=== PATIENT | female | born 1955 | race Two or more races ===

== ENCOUNTER 2017-01-14 15:56 | Inpatient (IN) | payer BC ==
[~2017-01-14] VITALS: Ht 309.9 cm; Wt 63.5 kg
[2017-01-14 17:00] VITALS: BP 137/76; PULSE 65; RESP 20
[2017-01-14] MEDS ORDERED: DOCUSATE SODIUM 100 MG CAP PO PRN ×2 (19:00)
[2017-01-14] MEDS ORDERED: ACETAMINOPHEN 325 MG TAB PO PRN (19:00)
[2017-01-14] MEDS ORDERED: SENNA/DOCUSATE NA (8.6MG/50MG) TAB PO PRN (19:00)
[2017-01-14] MEDS ORDERED: SENNA TAB PO PRN (19:00)
[2017-01-14] MEDS ORDERED: HYDROCODONE/APAP (5/325) TAB PO PRN ×2 (19:00)
[2017-01-14] MEDS ORDERED: DIAZEPAM 5 MG TAB PO PRN (19:00)
[2017-01-14] MEDS ORDERED: MAGNESIUM HYDROXIDE 30ML CUP PO PRN (19:00)
[2017-01-14] MEDS ORDERED: BISACODYL 10 MG SUPP PR PRN (19:00)
[2017-01-14 20:15] VITALS: Ht 309.9 cm; Wt 63.5 kg
--- NOTE | 2017-01-14 21:03 | HP ---
DATE OF ADMISSION: 01/14/2017 REASON FOR ADMISSION: Status post right L5-S1, S1-S2 hemilaminectomy and decompression of the right foraminotomies. This patient with possible lumbar metastatic disease status post decompression. HISTORY OF PRESENT ILLNESS: The patient is a 61-year-old female with history of breast cancer diagn osed more than 5 years ago, status post lumpectomy and treatment who in the past 3 months has been n oticing increased right lower extremity pain. The pain has become more severe in the past 2 weeks a nd she was finally admitted to [facility]. She underwent multiple diagnostic imaging includin g MRI which showed unfortunately diffuse bony metastases is suggested throughout the visualized spin e with majority of the lesions concentrated on the right side of the sacrum and pathologic fracture in the right S1 segment is suspected. See report. Patient was then evaluated by the surgical team, and the patient underwent the above procedure. The patient tolerated the procedure well and physic al therapy was initiated. Final pathology report is still not available. The patient states that t tom her pain was slightly more severe than usual, but she has been more active. Otherwise, she den ies headaches, blurry vision, chest pain, shortness of breath, weakness or numbness. The patient is admitted for further care. PAST MEDICAL HISTORY: 1. Breast cancer. 2. Likely metastatic cancer to the spine. 3. Hypertension. ALLERGIES: NO KNOWN DRUG ALLERGIES. SOCIAL HISTORY: Tobacco briefly in her teens. Alcohol, IV drug abuse none. ONCOLOGIST: Dr. Hawley. PRIMARY CARE: Dr. Cody. SURGICAL HISTORY: Lumpectomy, right wrist surgery. MEDICATIONS: The patient's current medications include: 1. ____ 3.125 twice a day. 2. Tylenol p.r.n. 3. Diazepam p.r.n. 4. [place] p.r.n. 5. Normodyne 200 mg q. 4 p.r.n. for systolic greater than 165. Before that she took calcium and vi tamins. PHYSICAL EXAMINATION: VITAL SIGNS: Blood pressure is 137/76, pulse 65, respirations 20, temperature 98.8, saturation 95% on room air. GENERAL: The patient is in no acute distress, very pleasant. Patient is pale. HEENT: No JVD. No lymphadenopathy. CARDIOVASCULAR: S1, S2, regular rate. LUNGS: Clear. ABDOMEN: Soft, nontender. EXTREMITIES: No clubbing, cyanosis, or edema. She has bandage in the mid spine and appears to be c lean. LABORATORY DATA: Recent labs on 01/12/2017 shows a white count of 9.8, hemoglobin 13.6, hematocrit 40. Sodium is 140, potassium is 4.3, chloride 101, bicarbonate 28, BUN is 22, creatinine 0.78, gluc ose of 119. ASSESSMENT AND PLAN: This is a 61-year-old female with history of breast cancer who presents with i ncreasing right lower extremity pain, basically back pain with radiculopathy was found to have most likely metastatic disease to the spine, status post decompression surgery, 1. Post lumbar spine surgery. The patient here for physical therapy, occupational therapy, pain co ntrol. Stool softeners will be given. 2. Goal is for her to be strong enough to go home as the patient resides alone. 3. Possible metastatic disease to the spine. Follow up pathology report and then follow up with [facility] oncologist, Dr. Hawley. 3. The patient will be placed on deep vein thrombosis prophylaxis and gastrointestinal prophylaxis. 4. Angiolytic p.r.n. for anxiety. 4. The patient will be placed on Protonix for GI prophylaxis. Monitor the patient's symptoms close ly. Continue wound care to the back and we will follow closely. Dictated By: VITALY RICO/NOEMY Conf#: [id number] DID#: [id number] CC: AVERY MARTINEZ MD;*EndCC*
[2017-01-14 21:18] VITALS: BP 138/82; PULSE 71; RESP 16
[2017-01-14] MEDS: DOCUSATE SODIUM 100 MG CAP PO SCH (21:19)
[2017-01-15] MEDS ORDERED: ACETAMINOPHEN 325 MG TAB PO PRN
[2017-01-15 04:00] VITALS: BP 154/85; PULSE 76; RESP 17
[2017-01-15 04:29] LABS: ADD UMIC NO; UR ASCORBIC ACID NEGATIVE (NEGATIVE); UR BILIRUBIN (Dip) NEGATIVE (NEGATIVE); UR BLOOD (Dip) NEGATIVE (NEGATIVE); UR CLARITY CLEAR (CLEAR); UR COLOR YELLOW (YELLOW); UR GLUCOSE (Dip) NEGATIVE (NEGATIVE); UR KETONES (Dip) NEGATIVE (NEGATIVE); UR LEUKOCYTE ESTERASE (Dip) NEGATIVE Leu/ul (NEGATIVE); UR NITRITE (Dip) NEGATIVE (NEGATIVE); UR SPECIFIC GRAVITY (Dip) 1.013 (1.003-1.030); UR TOTAL PROTEIN (Dip) NEGATIVE (NEGATIVE); UR UROBILINOGEN (Dip) NEGATIVE (NEGATIVE)
[2017-01-15 06:30] LABS: BASOPHIL # 0.1 10^3/ul (0.0-0.1); BASOPHILS % 0.8 % (0.0-2.0); EOSINOPHILS # 0.4 10^3/ul (0.0-0.5); EOSINOPHILS % 4.8 % (0.0-7.0); HEMATOCRIT 41.8 % (37.0-47.0); LYMPHOCYTES # 2.7 10^3/ul (0.8-2.9); LYMPHOCYTES % 31.5 % (15.0-51.0); MEAN CORPUSCULAR HEMOGLOBIN 29.8 pg (29.0-33.0); MEAN CORPUSCULAR HGB CONC 33.5 g/dl (32.0-37.0); MEAN CORPUSCULAR VOLUME 88.9 fl (82.0-101.0); MEAN PLATELET VOLUME 10.1 fl (7.4-10.4); MONOCYTE # 0.7 10^3/ul (0.3-0.9); MONOCYTES % 8.2 % (0.0-11.0); NEUTROPHIL # 4.7 10^3/ul (1.6-7.5); NEUTROPHILS % 54.3 % (39.0-77.0); PLATELET COUNT 401 10^3/UL (140-415); RED CELL DISTRIBUTION WIDTH 12.2 % (11.5-14.5); WHITE BLOOD COUNT 8.6 10^3/ul (4.8-10.8)
[2017-01-15 07:04] LABS: ALBUMIN 3.7 g/dl (3.3-4.9); ALBUMIN/GLOBULIN RATIO 1.02; BILIRUBIN,INDIRECT 0.4 mg/dl (0-1.1); BILIRUBIN,TOTAL 0.4 mg/dl (0.2-1.3); CALCIUM 9.7 mg/dl (8.4-10.2); CREATININE 1.07 mg/dl (0.44-1.00); POTASSIUM 4.7 mmol/L (3.5-5.1); TOTAL PROTEIN 7.3 g/dl (6.1-8.1)
[2017-01-15 08:00] VITALS: BP 168/85; PULSE 70; RESP 21
[2017-01-15] MEDS: ENOXAPARIN 40 MG/0.4 ML SYG SC SCH (09:27)
[2017-01-15] MEDS: DOCUSATE SODIUM 100 MG CAP PO SCH ×2 (09:28→20:39)
[2017-01-15] MEDS: LABETALOL 200 MG TAB PO PRN (09:28)
[2017-01-15] MEDS ORDERED: LACTULOSE 30ML CUP PO PRN (10:30)
--- NOTE | 2017-01-15 12:39 | CONS ---
DATE OF ADMISSION: 01/14/2017 DATE OF CONSULTATION: 01/15/2017 REHABILITATION POST ADMISSION PHYSICIAN EVALUATION REHABILITATION IMPAIRMENT CATEGORY: Metastatic breast carcinoma with bony mets to the lumbosacral s pine with resultant stenosis and radiculopathy, and pathologic sacral fracture requiring decompressi ve laminectomy. ACTIVE COMORBIDITIES: 1. Acute pain syndrome. 2. Constipation. 3. History of breast carcinoma with metastasis, also to bilateral iliac, right worse than left. 4. Impairments in self-care and mobility. HISTORY OF PRESENT ILLNESS: The patient is a very pleasant 61-year-old female with a history of br [place] who had noted worsening severe right lower extremity pain with numbness and significant impa irments in self-care and mobility. Workup included an MRI of the spine which showed diffuse bony me tastasis of the thoracolumbar sacral spine with notable lumbosacral stenosis and radiculopathy in ad dition to pathologic sacral fracture, and bilateral iliac bone metastases. The patient underwent d ecompressive right hemilaminotomy with foraminotomies. Her postoperative course has been notable fo r pain, constipation, and significant impairments in self-care and mobility as compared to baseline. The patient has been cleared to transfer to the rehabilitation unit for comprehensive interdiscipl inary rehab care. FUNCTIONAL HISTORY: Prior to recent events, she was independent in self-care tasks and mobility. C urrently, patient requires minimal assist for self-care and mobility tasks. I have reviewed the preadmission screen and the patient's current functional status is consistent wi th the preadmission screen. SOCIAL HISTORY: The patient lives at home alone. She does live in a second floor apartment and has multiple stair steps to entryway. PAST MEDICAL HISTORY: Breast carcinoma. CURRENT MEDICATIONS: 1. Carvedilol 3.125 mg p.o. b.i.d. 2. Diazepam p.r.n. 3. Colace 100 mg b.i.d. p.r.n. 4. [place] p.r.n. 5. Lovenox 40 mg subQ every day. ALLERGIES: THE PATIENT WITH NO KNOWN DRUG ALLERGIES. PHYSICAL EXAMINATION: VITAL SIGNS: The patient is currently afebrile with stable vital signs. HEENT: Extraocular motions intact. Oropharynx clear. NECK: Supple. LUNGS: Clear anteriorly. CARDIAC: S1, S2. ABDOMEN: Soft, nontender, positive bowel sounds. NEUROLOGIC: She is awake and alert and oriented x3. She can follow simple 1-step commands. Crania l nerves are grossly intact. She has antigravity strength in bilateral upper extremity and lower ex tremity. She does have impaired dynamic balance. PLAN: The patient has been admitted for comprehensive interdisciplinary acute rehab and is anticipa jodie to tolerate 3 hours of daily therapy in divided doses for at least 5/7 days a week. The treatme nt plan will include: 1. Physical therapy to focus on bed mobility, transfers and household ambulation with the goal of h aving the patient reach a standby assist in addition to standby assist for stair mobility. 2. Occupational therapy to focus on hygiene, grooming, dressing, bathing, and toileting activities with the goal of having the patient reach standby assist level. 3. Rehabilitation nursing for carryover of therapeutic interventions, the goal of continent of dariel l and bladder, and the goal of pain adequately managed on oral medications. ESTIMATED LENGTH OF STAY: 7 days. DISPOSITION GOAL: Home. REHABILITATION BARRIER: Stairs at home. INTERVENTION FOR BARRIER: Stair training. I acknowledge that I performed a full physical examination on this patient within 24 hours of admiss ion to the rehabilitation unit and believe the patient is a good candidate for comprehensive interdi sciplinary rehab care and is anticipated to make reasonable goals in a reasonable period of time as outlined above. Dictated By: AVERY GALVIN/NTS Conf#: [id number] DID#: [id number]
[2017-01-15] MEDS: SENNA TAB PO SCH (20:39)
[2017-01-15 20:45] VITALS: BP 136/84; PULSE 75; RESP 19
--- NOTE | 2017-01-16 07:00 | PN ---
DATE: 01/15/2017 SUBJECTIVE: The patient seen. OBJECTIVE: GENERAL: The patient is in no acute distress. HEENT: Normocephalic, atraumatic. Pale. CARDIOVASCULAR: S1, S2, regular rate. LUNGS: Clear. ABDOMEN: Soft, nontender. EXTREMITIES: No clubbing, cyanosis, or edema. LABORATORY DATA: White count 8.6, hemoglobin 14, hematocrit 42, platelet count is 401 with normal d ifferential. Chemistry: Sodium 139, potassium 4.7, chloride , bicarbonate 29, BUN 24, creatin ine 1.07, glucose of 113. LFTs are all normal. Urinalysis is negative. MEDICATIONS: Include: 1. Senna 1 tab b.i.d. 2. Lactulose p.r.n. 3. Lovenox 40 mg subcutaneous daily. 4. Tylenol p.r.n. 5. Coreg 3.125 b.i.d. 6. Colace 100 b.i.d. 7. Valium 5 mg q.6h. p.r.n. 8. Colace p.r.n. 9. [place] p.r.n. 10. Labetalol p.r.n. 11. Milk of magnesia p.r.n. 12. Bisacodyl p.r.n. ASSESSMENT AND PLAN: This is a 61-year-old female with history of breast cancer, who presented with increasing right lower extremity pain, was found to have metastatic disease to the spine on radiogr aphic imaging status post decompression surgery. 1. Post-lumbar spine surgery. Continue physical therapy, occupational therapy, pain control, stool softeners. 2. Hypertension. Currently on Coreg; may add another medication such as amlodipine. 3. Possible metastatic disease to the spine. We will follow up with pathology report and will disc uss findings with Dr. Hawley the oncologist. 4. Continue deep vein thrombosis prophylaxis and gastrointestinal prophylaxis. 5. Continue gastrointestinal prophylaxis with Protonix. 6. Continue benzodiazepines p.r.n. for anxiety. Continue stool softeners. We will follow closely. Dictated By: VITALY RICO/NOEMY Conf#: [id number] DID#: [id number] CC: AVERY MARTINEZ MD;*EndCC*
[2017-01-16 08:00] VITALS: BP 168/95; PULSE 88; RESP 18
[2017-01-16 09:40] VITALS: BP 108/70; PULSE 78; RESP 18
[2017-01-16] MEDS: SENNA TAB PO SCH ×2 (09:47→20:58)
[2017-01-16] MEDS: DOCUSATE SODIUM 100 MG CAP PO SCH ×2 (09:47→20:58)
[2017-01-16] MEDS: LABETALOL 200 MG TAB PO PRN (09:48)
[2017-01-16] MEDS: ENOXAPARIN 40 MG/0.4 ML SYG SC SCH (10:06)
[2017-01-16] MEDS: GABAPENTIN 100 MG CAP PO SCH ×2 (12:18→20:57)
--- NOTE | 2017-01-16 12:35 | CONS ---
Date/Time of Note Date/Time of Note DATE: 01/16/17 TIME: 12:33 Consult Date/Type/Reason Admit Date/Time Jan 14, 2017 at 15:56 Initial Consult Date Subjective reports pain primarily when sitting Objective pulm-cta cga ambulation Vital Signs Date Time Temp Pulse Resp B/P Pulse Ox O2 Delivery O2 Flow Rate FiO2 01/15/17 20:45 98.3 75 19 136/84 95 Room Air Intake and Output 01/15/17 01/15/17 01/16/17 14:59 22:59 06:59 Intake Total 200 ml Balance 200 ml Results/Medications Result Diagram: 01/15/17 0558 01/15/17 0558 Medications Current Medications Carvedilol (Coreg) 3.125 mg BID PO Last administered on 01/16/17 09:48; Admin Dose 3.125 MG; Start 01/14/17 at 21:00 Diazepam (Valium) 5 mg Q6H PRN PO MUSCLE SPASMS; Start 01/14/17 at 19:00 Docusate Sodium (Colace) 100 mg BID PRN PO CONSTIPATION; Start 01/14/17 at 19: 00 Acetaminophen/ Hydrocodone Bitart ([place] (5/325)) 1 tab Q4H PRN PO PAIN 1-3/10 ; Start 01/14/17 at 19:00 Acetaminophen/ Hydrocodone Bitart ([place] (5/325)) 2 tab Q4H PRN PO PAIN 4-7/10 ; Start 01/14/17 at 19:00 Labetalol HCl (Normodyne) 200 mg Q4H PRN PO sbp>165 Last administered on 09:48; Admin Dose 200 MG; Start 01/14/17 at 19:00 Enoxaparin Sodium (Lovenox) 40 mg DAILY SC Last administered on 01/16/17 10: 06; Admin Dose 40 MG; Start 01/15/17 at 09:00 Docusate Sodium (Colace) 100 mg BID PO Last administered on 01/16/17 09:47; Admin Dose 100 MG; Start 01/14/17 at 21:00 Magnesium Hydroxide (Milk Of Mag) 30 ml BID PRN PO CONSTIPATION; Start at 19:00 Bisacodyl (Dulcolax Supp) 10 mg DAILY PRN [place] CONSTIPATION; Start 01/14/17 at 19:00 Acetaminophen (Tylenol Tab) 650 mg Q4H PRN PO PAIN AND OR ELEVATED TEMP Last administered on 01/16/17 12:18; Admin Dose 650 MG; Start 01/15/17 at 00:00 Senna (Senokot) 1 tab BID PO Last administered on 01/16/17 09:47; Admin Dose 1 TAB; Start 01/15/17 at 21:00 Lactulose (Enulose) 15 gm DAILY PRN PO CONSTIPATION; Start 01/15/17 at 10:30 Gabapentin (Neurontin) 100 mg TID PO Last administered on 01/16/17 12:18; Admin Dose 100 MG; Start 01/16/17 at 11:30 Assessment/Plan Additional Assessment/Plan Rehab- Metastatic breast ca with bony mets to the lumbosacral spine stenosis and radiculopathy, and pathologic sacral fracture- decompressive laminectomy. Continue rehab program Acute pain syndrome-will add neurontin GI- bowel program History of breast carcinoma with metastasis, also to bilateral iliac, right worse than left. AVERY MARTINEZ MD Jan 16, 2017 12:35
[2017-01-16 14:00] VITALS: BP 135/75; PULSE 80; RESP 18
[2017-01-16 20:00] VITALS: BP 134/71; PULSE 78; PULSE 82; RESP 18
--- NOTE | 2017-01-16 22:16 | PN ---
DATE: 01/16/2017 SUBJECTIVE: Patient seen. I have spoken to patient's oncology doctor, Dr. Hawley, who informed harinder adorno that the results of her laminectomy pathology results do confirm metastatic cancer to the spine, chandrakant hoyosely breast cancer. He told me that he will talk to the patient and inform her of the findings. T he patient seen. The patient is still complaining of difficulty sitting for prolonged period of jess e. Otherwise, she continues to participate with physical therapy. Otherwise, no acute events. Blo od pressure has been actually slightly on the high side, up to the 160s at times. PHYSICAL EXAMINATION: VITAL SIGNS: Temperature 98.3, pulse 75, respirations 19, blood pressure 136/84, saturation 95% on room air. GENERAL: The patient is in no acute distress. The patient is pale. No JVD. No lymphadenopathy. CARDIOVASCULAR: S1, S2, regular rate. LUNGS: Clear. ABDOMEN: Soft, nontender. EXTREMITIES: No clubbing, cyanosis or edema. LABORATORY DATA: Done on 01/15/2017 were all reviewed. CBC was normal. BUN and creatinine were sl ightly high at 24/1.07. Urinalysis was essentially negative and urine culture showed mixed gram-neg ative and positive organisms, less than 10 to the 4th, likely contamination. MEDICATIONS: Reviewed, include: 1. Neurontin 100 t.i.d. 2. Senna 1 tab b.i.d. 3. Lactulose p.r.n. 4. Lovenox 40 mg subcutaneous daily. 5. Tylenol p.r.n. 6. Coreg 3.125 b.i.d. 7. Colace 100 b.i.d. 8. Valium 5 mg q.6 p.r.n. 9. Colace p.r.n. 10. [place] p.r.n. 11. Labetalol p.r.n. 12. Magnesium hydroxide. 13. Milk of magnesia p.r.n. 14. Dulcolax p.r.n. ASSESSMENT AND PLAN: 1. This is a 61-year-old female with history of breast cancer, who presented with increased right l ower extremity pain, was found to have metastatic disease to the spine, status post decompression coughlin rgery. 2. Metastatic breast cancer. 3. The patient will need to follow up with Dr. Hawley for further treatment plan. 4. Status post laminectomy, decompression surgery. Continue physical therapy, pain control. 5. Hypertension, currently on Coreg. We will add low dose amlodipine. 6. Continue gastrointestinal prophylaxis. 7. Continue stool softener. 8. Benzodiazepines p.r.n. for anxiety. 9. We will continue to monitor closely her progress. Dictated By: VITALY RICO/NOEMY Conf#: [id number] DID#: [id number] CC: AVERY MARTINEZ MD;*EndCC*
[2017-01-17 03:42] VITALS: BP 133/77; PULSE 69; RESP 16
[2017-01-17 07:49] VITALS: BP 167/84; PULSE 77; RESP 18
[2017-01-17] MEDS: GABAPENTIN 100 MG CAP PO SCH ×3 (08:19→20:46)
[2017-01-17] MEDS: DOCUSATE SODIUM 100 MG CAP PO SCH ×2 (08:20→20:46)
[2017-01-17] MEDS: AMLODIPINE 2.5 MG TAB PO SCH (08:20)
[2017-01-17] MEDS: SENNA TAB PO SCH ×2 (08:20→20:46)
[2017-01-17] MEDS: ENOXAPARIN 40 MG/0.4 ML SYG SC SCH (08:37)
--- NOTE | 2017-01-17 12:22 | CONS ---
Date/Time of Note Date/Time of Note DATE: 01/17/17 TIME: 12:20 Consult Date/Type/Reason Admit Date/Time Jan 14, 2017 at 15:56 Subjective Still with difficulty with prolonged sitting Objective pulm-cta abd-soft sba ambulation 6 minute sitting tolerance Vital Signs Date Time Temp Pulse Resp B/P Pulse Ox O2 Delivery O2 Flow Rate FiO2 01/17/17 07:49 98.0 77 18 167/84 96 Room Air Intake and Output 01/16/17 01/16/17 01/17/17 15:00 23:00 07:00 Intake Total 1200 ml 240 ml Output Total 900 ml 350 ml Balance 300 ml -110 ml Results/Medications Result Diagram: 01/15/17 0558 01/15/17 0558 Medications Current Medications Carvedilol (Coreg) 3.125 mg BID PO Last administered on 01/17/17 08:20; Admin Dose 3.125 MG; Start 01/14/17 at 21:00 Diazepam (Valium) 5 mg Q6H PRN PO MUSCLE SPASMS; Start 01/14/17 at 19:00 Docusate Sodium (Colace) 100 mg BID PRN PO CONSTIPATION; Start 01/14/17 at 19: 00 Acetaminophen/ Hydrocodone Bitart ([place] (5/325)) 1 tab Q4H PRN PO PAIN 1-3/10 ; Start 01/14/17 at 19:00 Acetaminophen/ Hydrocodone Bitart ([place] (5/325)) 2 tab Q4H PRN PO PAIN 4-7/10 ; Start 01/14/17 at 19:00 Labetalol HCl (Normodyne) 200 mg Q4H PRN PO sbp>165 Last administered on 09:48; Admin Dose 200 MG; Start 01/14/17 at 19:00 Enoxaparin Sodium (Lovenox) 40 mg DAILY SC Last administered on 01/17/17 08:37 ; Admin Dose 40 MG; Start 01/15/17 at 09:00 Docusate Sodium (Colace) 100 mg BID PO Last administered on 01/17/17 08:20; Admin Dose 100 MG; Start 01/14/17 at 21:00 Magnesium Hydroxide (Milk Of Mag) 30 ml BID PRN PO CONSTIPATION; Start at 19:00 Bisacodyl (Dulcolax Supp) 10 mg DAILY PRN [place] CONSTIPATION; Start 01/14/17 at 19:00 Acetaminophen (Tylenol Tab) 650 mg Q4H PRN PO PAIN AND OR ELEVATED TEMP Last administered on 01/16/17 12:18; Admin Dose 650 MG; Start 01/15/17 at 00:00 Senna (Senokot) 1 tab BID PO Last administered on 01/17/17 08:20; Admin Dose 1 TAB; Start 01/15/17 at 21:00 Lactulose (Enulose) 15 gm DAILY PRN PO CONSTIPATION; Start 01/15/17 at 10:30 Gabapentin (Neurontin) 100 mg TID PO Last administered on 01/17/17 08:19; Admin Dose 100 MG; Start 01/16/17 at 11:30 Amlodipine Besylate (Norvasc) 2.5 mg DAILY PO Last administered on 01/17/17 08 :20; Admin Dose 2.5 MG; Start 01/17/17 at 09:00 Assessment/Plan Additional Assessment/Plan Rehab- Metastatic breast ca with bony mets to the lumbosacral spine stenosis and radiculopathy, and pathologic sacral fracture- decompressive laminectomy. Continue rehab program with increased activities as tolerated Acute pain syndrome-tolerating neurontin GI- bowel program History of breast carcinoma with metastasis, also to bilateral iliac, right worse than left. AVERY MARTINEZ MD Jan 17, 2017 12:22
[2017-01-17 16:24] VITALS: BP 144/78; RESP 18
--- NOTE | 2017-01-17 17:57 | PN ---
DATE: 01/17/2017 SUBJECTIVE: The patient seen. The patient with no specific complaints. Blood pressure has been fl uctuating. I did start the patient on Norvasc 2.5 daily. Blood pressure has improved. Dr. Larios i informed that the patient's pathology report from the decompression laminectomy did reveal evidenc e of malignancy. The patient likely has metastatic breast cancer. Patient to undergo radiation the [facility] as an outpatient once the patient is being discharged. Overall the patient is improving. She is able to tolerate sitting more. Otherwise, comfortably lying in bed. PHYSICAL EXAMINATION: VITAL SIGNS: Temperature 98, pulse 77, respirations 18, blood pressure 167/84. It went down to the 120s. Saturation 96% on room air. GENERAL: No acute distress. HEENT: Normocephalic, atraumatic. The patient is pale. CARDIOVASCULAR: S1, S2, regular rate. LUNGS: Clear. ABDOMEN: Soft, nontender. EXTREMITIES: There is no clubbing, cyanosis, or edema. LABORATORY DATA: No new labs today. Labs on admission on 01/15 were all reviewed. MEDICATIONS: Include the followin. Norvasc 2.5 daily. 2. Neurontin 100 t.i.d. 3. Senna 1 tab b.i.d. 4. Lactulose p.r.n. 5. Lovenox 40 mg subcutaneous daily. 6. Tylenol p.r.n. 7. Coreg 3.125 b.i.d. 8. Colace 100 b.i.d. 9. Valium 5 mg q. 6 p.r.n. 10. Colace p.r.n. 11. [place] p.r.n. 12. Milk of magnesia p.r.n. 13. Dulcolax p.r.n. 14. Labetalol p.r.n. ASSESSMENT AND PLAN: This is a 61-year-old female with history of breast cancer, who presented with increased right lower extremity pain, was found to have metastatic disease to the spine, status pos t decompression surgery. 1. 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 Continue physical the rapy, occupational therapy and pain control, status post spinal surgery. Outpatient followup with Vandana Hawley, who will arrange radiation therapy to the back. 2. Hypertension. Continue Coreg and amlodipine. Instead of labetalol, we will place her on p.r.n. hydralazine and titrate above medications first to control her blood pressure. Low salt diet is ad vised. 3. Continue gastrointestinal prophylaxis. 4. Continue stool softeners. The patient felt much better after her bowel movement today. 5. Benzodiazepines p.r.n. for anxiety. 6. Continue deep vein thrombosis prophylaxis and will place the patient on gastrointestinal prophyl axis as well, on Protonix. 7. I appreciate the rehabilitation care and recommendations. We will follow. Dictated By: VITALY RIOC/NOEMY Conf#: [id number] DID#: [id number]
[2017-01-17 20:06] VITALS: BP 144/72; RESP 18
[2017-01-18 02:00] VITALS: BP 138/75; RESP 18
[2017-01-18] MEDS: PANTOPRAZOLE (EC) 40 MG TAB PO SCH (05:42)
[2017-01-18 07:30] VITALS: BP 142/80; RESP 20
[2017-01-18] MEDS: DOCUSATE SODIUM 100 MG CAP PO SCH ×2 (08:33→21:03)
[2017-01-18] MEDS: AMLODIPINE 2.5 MG TAB PO SCH (08:33)
[2017-01-18] MEDS: SENNA TAB PO SCH ×2 (08:34→21:04)
[2017-01-18] MEDS: GABAPENTIN 100 MG CAP PO SCH ×3 (08:34→21:04)
[2017-01-18] MEDS: ENOXAPARIN 40 MG/0.4 ML SYG SC SCH (08:36)
--- NOTE | 2017-01-18 11:20 | CONS ---
Date/Time of Note Date/Time of Note DATE: 01/18/17 TIME: 11:20 Consult Date/Type/Reason Admit Date/Time Jan 14, 2017 at 15:56 Subjective Feeling better Objective pulm-cta sba ambulation Vital Signs Date Time Temp Pulse Resp B/P Pulse Ox O2 Delivery O2 Flow Rate FiO2 01/18/17 07:30 98.5 78 20 142/80 98 01/17/17 07:49 Room Air Intake and Output 01/17/17 01/17/17 01/18/17 15:00 23:00 07:00 Intake Total 200 ml 700 ml Balance 200 ml 700 ml Results/Medications Result Diagram: 01/15/17 0558 01/15/17 0558 Medications Current Medications Carvedilol (Coreg) 3.125 mg BID PO Last administered on 01/18/17 08:34; Admin Dose 3.125 MG; Start 01/14/17 at 21:00 Diazepam (Valium) 5 mg Q6H PRN PO MUSCLE SPASMS; Start 01/14/17 at 19:00 Docusate Sodium (Colace) 100 mg BID PRN PO CONSTIPATION; Start 01/14/17 at 19: 00 Acetaminophen/ Hydrocodone Bitart ([place] (5/325)) 1 tab Q4H PRN PO PAIN 1-3/10 ; Start 01/14/17 at 19:00 Acetaminophen/ Hydrocodone Bitart ([place] (5/325)) 2 tab Q4H PRN PO PAIN 4-7/10 ; Start 01/14/17 at 19:00 Enoxaparin Sodium (Lovenox) 40 mg DAILY SC Last administered on 01/18/17 08:36 ; Admin Dose 40 MG; Start 01/15/17 at 09:00 Docusate Sodium (Colace) 100 mg BID PO Last administered on 01/18/17 08:33; Admin Dose 100 MG; Start 01/14/17 at 21:00 Magnesium Hydroxide (Milk Of Mag) 30 ml BID PRN PO CONSTIPATION; Start at 19:00 Bisacodyl (Dulcolax Supp) 10 mg DAILY PRN [place] CONSTIPATION; Start 01/14/17 at 19:00 Acetaminophen (Tylenol Tab) 650 mg Q4H PRN PO PAIN AND OR ELEVATED TEMP Last administered on 11/30/17at 12:18; Admin Dose 650 MG; Start 01/15/17 at 00:00 Senna (Senokot) 1 tab BID PO Last administered on 01/18/17 08:34; Admin Dose 1 TAB; Start 01/15/17 at 21:00 Lactulose (Enulose) 15 gm DAILY PRN PO CONSTIPATION; Start 01/15/17 at 10:30 Gabapentin (Neurontin) 100 mg TID PO Last administered on 01/18/17 08:34; Admin Dose 100 MG; Start 01/16/17 at 11:30 Amlodipine Besylate (Norvasc) 2.5 mg DAILY PO Last administered on 01/18/17 08 :33; Admin Dose 2.5 MG; Start 01/17/17 at 09:00 Hydralazine HCl (Apresoline) 25 mg Q6 PRN PO sbp> 165; Start 01/17/17 at 16:00 Pantoprazole (Protonix Tab) 40 mg DAILY@06 PO Last administered on 01/18/17 05 :42; Admin Dose 40 MG; Start 01/18/17 at 06:00 Assessment/Plan Additional Assessment/Plan Rehab- Metastatic breast ca with bony mets to the lumbosacral spine stenosis and radiculopathy, and pathologic sacral fracture- decompressive laminectomy. Continue current rehab program Acute pain syndrome-continue current meds. GI- bowel program History of breast carcinoma with metastasis, also to bilateral iliac, right worse than left. AVERY MARTINEZ MD Jan 18, 2017 11:20
[2017-01-18 14:00] VITALS: BP 136/75; RESP 20
--- NOTE | 2017-01-18 18:35 | PN ---
DATE: 01/18/2017 SUBJECTIVE: The patient seen. The patient continues to have pain when sitting. Blood pressure goe s up when she has pain. Will adjust the blood pressure meds. PHYSICAL EXAMINATION: VITAL SIGNS: Temperature 98.5, pulse 78, respirations 20, blood pressure 142/80, saturation 98%. GENERAL: No acute distress. HEENT: Normocephalic, atraumatic. The patient is pale. CARDIOVASCULAR: S1, S2, regular rate. LUNGS: Clear. ABDOMEN: Soft, nontender. EXTREMITIES: No clubbing, cyanosis, or edema. MEDICATIONS: All reviewed, include: 1. Protonix ____ mg daily. 2. Hydralazine 25 q. 6 p.r.n. 3. Norvasc 2.5 daily. Will increase to 5. 4. Neurontin 100 t.i.d. 5. Senna 1 tab b.i.d. 6. Lactulose p.r.n. 7. Lovenox 40 mg subcutaneous daily. 8. Tylenol p.r.n. 9. Coreg 3.125 b.i.d. 10. Colace 100 b.i.d. 11. Valium p.r.n. 12. Colace p.r.n. 13. [place] p.r.n. 14. Milk of magnesia p.r.n. 15. Dulcolax p.r.n. ASSESSMENT AND PLAN: This is a respiratory 61-year-old female with history of breast cancer, who pr esented with increased right lower extremity pain, was found to have metastatic disease to the spine , status post decompression surgery. 1. 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 Continue physical the rapy, occupational therapy, pain control. Patient to follow as an outpatient with Dr. Wilkerson, who is a surgeon and Dr. Hawley, the oncologist. Patient will likely need oral chemotherapy pills plus r adiation therapy as discussed. 2. Hypertension. ____ Increase amlodipine to 5, continue Coreg. 3. Continue gastrointestinal prophylaxis. 4. Continue deep venous thrombosis prophylaxis. 5. Continue stool softeners as patient is on opioids p.r.n. 6. Benzodiazepines p.r.n. as well. 7. Overall improving. Mood appears to be good. We will follow. Dictated By: VITALY RICO/NOEMY Conf#: [id number] DID#: [id number] CC: AVERY MARTINEZ MD;*EndCC*
[2017-01-18 19:57] VITALS: BP 146/75; RESP 18
[2017-01-19 02:47] VITALS: BP 135/76; RESP 20
[2017-01-19] MEDS: PANTOPRAZOLE (EC) 40 MG TAB PO SCH (06:42)
[2017-01-19] MEDS ORDERED: AMLODIPINE 5 MG TAB ONE (07:51)
[2017-01-19 08:33] VITALS: BP 162/84; PULSE 74; RESP 18
[2017-01-19] MEDS: ENOXAPARIN 40 MG/0.4 ML SYG SC SCH (08:38)
[2017-01-19] MEDS: SENNA TAB PO SCH ×2 (08:39→20:18)
[2017-01-19] MEDS: AMLODIPINE 2.5 MG TAB PO SCH (08:40)
[2017-01-19] MEDS: GABAPENTIN 100 MG CAP PO SCH ×3 (08:40→20:17)
[2017-01-19] MEDS: DOCUSATE SODIUM 100 MG CAP PO SCH ×2 (08:40→20:18)
[2017-01-19] MEDS ORDERED: AMLODIPINE 2.5 MG TAB PO SCH (09:00)
--- NOTE | 2017-01-19 17:54 | PN ---
DATE: 01/19/2017 SUBJECTIVE: The patient seen. Overall comfortable. Did not get out of bed much today but able to ambulate fine but able to sit only for 8 minutes. Otherwise, she has pain. PHYSICAL EXAMINATION: VITAL SIGNS: Temperature 98.2, pulse 74, respirations 18, blood pressure slightly high at 162/ , earlier was 135/76. GENERAL: The patient is in no acute distress. The patient is pale. CARDIOVASCULAR: S1, S2, regular rate. LUNGS: Clear. ABDOMEN: Soft, nontender. EXTREMITIES: No clubbing, cyanosis or edema. The patient moving all extremities. LABORATORIES: No new labs today. CURRENT MEDICATIONS: Include: 1. Norvasc 5 mg daily. 2. Protonix mg daily. 3. Hydralazine 25 q.6 p.r.n. for systolic greater than 165. 4. Neurontin 100 mg t.i.d. 5. Senna 1 tab b.i.d. 6. Lactulose p.r.n. 7. Tylenol p.r.n. 8. Coreg 3.125 b.i.d. 9. Colace 100 b.i.d. 10. Valium 5 mg q.6 p.r.n. 11. Colace p.r.n. 12. [place] p.r.n. 13. Milk of magnesia p.r.n. 14. Dulcolax p.r.n. ASSESSMENT AND PLAN: This is a 61-year-old female with history of breast cancer who presented with increased right lower extremity pain. Was found to have metastatic disease to the spine, status pos t decompression surgery. 1. 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 Continue physical the rapy, occupational therapy and pain control. Outpatient followup with Dr. Wilkerson, the surgeon, and Dr. Hawley, the oncologist. The patient will need oral chemotherapy. Radiation therapy is discussed . 2. Hypertension. Continue amlodipine and Coreg. Continue hydralazine p.r.n. 3. On gastrointestinal prophylaxis 4. Change Lovenox to sequential compression devices as the patient does not want to get injection. The patient overall ambulating. 5. Continue stool softeners. 6. Benzodiazepine p.r.n. for anxiety. 7. Overall improving. We will follow. Dictated By: VITALY RICO/NOEMY Conf#: [id number] [facility]#: [id number] CC: AVERY MARTINEZ MD;*EndCC*
[2017-01-19 20:00] VITALS: BP 164/86; RESP 18
[2017-01-20 02:00] VITALS: BP 148/79; RESP 18
[2017-01-20] MEDS: PANTOPRAZOLE (EC) 40 MG TAB PO SCH (05:18)
[2017-01-20 08:00] VITALS: BP 174/82; RESP 18
[2017-01-20 08:48] VITALS: BP 173/85; PULSE 77; RESP 18
[2017-01-20] MEDS: GABAPENTIN 100 MG CAP PO SCH ×3 (08:50→22:01)
[2017-01-20] MEDS: AMLODIPINE 2.5 MG TAB PO SCH (08:50)
[2017-01-20] MEDS: DOCUSATE SODIUM 100 MG CAP PO SCH ×2 (08:51→22:00)
[2017-01-20] MEDS: SENNA TAB PO SCH ×2 (08:51→22:00)
--- NOTE | 2017-01-20 13:12 | CONS ---
Date/Time of Note Date/Time of Note DATE: 01/20/17 TIME: 13:12 Consult Date/Type/Reason Admit Date/Time Jan 14, 2017 at 15:56 Subjective Patient reprots she will not be able to tolerate prolonged sitting for transport back and forth for XRT Objective pulm-cta sba ambulation Vital Signs Date Time Temp Pulse Resp B/P Pulse Ox O2 Delivery O2 Flow Rate FiO2 01/20/17 08:48 97.7 77 18 173/85 97 Room Air Intake and Output 01/19/17 01/19/17 01/20/17 15:00 23:00 07:00 Intake Total 1600 ml 240 ml Output Total 1000 ml 650 ml Balance 600 ml -410 ml Results/Medications Medications Current Medications Carvedilol (Coreg) 3.125 mg BID PO Last administered on 01/20/17 08:51; Admin Dose 3.125 MG; Start 01/14/17 at 21:00 Diazepam (Valium) 5 mg Q6H PRN PO MUSCLE SPASMS; Start 01/14/17 at 19:00 Docusate Sodium (Colace) 100 mg BID PRN PO CONSTIPATION; Start 01/14/17 at 19: 00 Acetaminophen/ Hydrocodone Bitart ([place] (5/325)) 1 tab Q4H PRN PO PAIN 1-3/10 ; Start 01/14/17 at 19:00 Acetaminophen/ Hydrocodone Bitart ([place] (5/325)) 2 tab Q4H PRN PO PAIN 4-7/10 ; Start 01/14/17 at 19:00 Docusate Sodium (Colace) 100 mg BID PO Last administered on 01/19/17 08:40; Admin Dose 100 MG; Start 01/14/17 at 21:00 Magnesium Hydroxide (Milk Of Mag) 30 ml BID PRN PO CONSTIPATION; Start at 19:00 Bisacodyl (Dulcolax Supp) 10 mg DAILY PRN [place] CONSTIPATION; Start 01/14/17 at 19:00 Acetaminophen (Tylenol Tab) 650 mg Q4H PRN PO PAIN AND OR ELEVATED TEMP Last administered on 01/16/17 12:18; Admin Dose 650 MG; Start 01/15/17 at 00:00 Senna (Senokot) 1 tab BID PO Last administered on 01/19/17 08:39; Admin Dose 1 TAB; Start 01/15/17 at 21:00 Lactulose (Enulose) 15 gm DAILY PRN PO CONSTIPATION Last administered on 08:39; Admin Dose 15 GM; Start 01/15/17 at 10:30 Gabapentin (Neurontin) 100 mg TID PO Last administered on 01/20/17 12:29; Admin Dose 100 MG; Start 01/16/17 at 11:30 Hydralazine HCl (Apresoline) 25 mg Q6 PRN PO sbp> 165; Start 01/17/17 at 16:00 Pantoprazole (Protonix Tab) 40 mg DAILY@06 PO Last administered on 01/20/17 05 :18; Admin Dose 40 MG; Start 01/18/17 at 06:00 Amlodipine Besylate (Norvasc) 5 mg DAILY PO Last administered on 01/20/17 08: 50; Admin Dose 5 MG; Start 01/19/17 at 09:00 Assessment/Plan Additional Assessment/Plan Rehab- LS and iliac mets with sacral fx- patient s/p decomp lami Continue current rehab pain- improving AVERY MARTINEZ MD Jan 20, 2017 13:12
--- NOTE | 2017-01-20 14:46 | PN ---
DATE: 01/20/2017 I had a discussion with the patient and nursing staff regarding discharge planning. The patient's b lood pressure was noted to be higher now 140 to 170s. PHYSICAL EXAMINATION: VITAL SIGNS: Temperature 97.7, pulse 77, respirations 18, blood pressure 173/85, saturation 97%, bl ood pressure later improved. GENERAL: The patient is pale. CARDIOVASCULAR: S1, S2, regular rate. LUNGS: Clear. ABDOMEN: Soft, nontender. EXTREMITIES: No clubbing, cyanosis, or edema. LABORATORY DATA: No new labs. MEDICATIONS: 1. Norvasc 5 mg daily. 2. Protonix 40 mg daily. 3. Hydralazine 25 q.6h. p.r.n. 4. Neurontin 100 t.i.d. 5. Senna 1 tab b.i.d. 6. Lactulose p.r.n. 7. Tylenol p.r.n. 8. Coreg 3.125 b.i.d. 9. Colace 100 b.i.d. 10. Valium p.r.n. 11. Colace p.r.n. 12. [place] p.r.n. 13. Milk of magnesia p.r.n. 14. Dulcolax p.r.n. ASSESSMENT AND PLAN: This is a 61-year-old female with history of breast cancer, who presented with increased right lower extremity pain, was found to have metastatic disease to the spine, status pos t decompression surgery. 1. 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 Continue physical the rapy, occupational therapy, pain control and follow up with her doctors, Dr. Wilkerson the surgeon, Dr. Leone the oncologists. The patient will need radiation therapy. Pain control is being provided as needed. We will follow. 2. Hypertension. We will increase Coreg to 6.25 b.i.d. and amlodipine to 2.5 mg b.i.d. Continue p. r.n. hydralazine. 3. Gastrointestinal. Continue gastrointestinal prophylaxis. 4. Lovenox was discontinued now on sequential stockings. 5. Continue stool softeners. 6. Benzodiazepines p.r.n. for anxiety. We will follow. Dictated By: VITALY RICO/NOEMY Conf#: [id number] DID#: [id number] CC: AVERY MARTINEZ MD;*EndCC*
[2017-01-20 20:00] VITALS: BP 166/80; RESP 18
[2017-01-20] MEDS ORDERED: AMLODIPINE 2.5 MG TAB PO SCH (21:00)
[2017-01-20 22:00] VITALS: BP 139/70; PULSE 86; RESP 16
[2017-01-20] MEDS: AMLODIPINE 5 MG TAB PO SCH (22:00)
[2017-01-21 02:00] VITALS: BP 154/76; RESP 18
[2017-01-21] MEDS: PANTOPRAZOLE (EC) 40 MG TAB PO SCH (06:10)
[2017-01-21 07:30] VITALS: BP 147/79; RESP 20
[2017-01-21] MEDS: DOCUSATE SODIUM 100 MG CAP PO SCH (08:52)
[2017-01-21] MEDS: SENNA TAB PO SCH (08:53)
[2017-01-21] MEDS: GABAPENTIN 100 MG CAP PO SCH ×2 (08:59→13:01)
[2017-01-21] MEDS: AMLODIPINE 5 MG TAB PO SCH (09:00)
--- NOTE | 2017-01-21 12:41 | CONS ---
Date/Time of Note Date/Time of Note DATE: 01/21/17 TIME: 12:40 Consult Date/Type/Reason Admit Date/Time Jan 14, 2017 at 15:56 Subjective Activity tolerance has improved, however patient still with quite limited sitting tolerance Objective pulm-cta sba ambulation Vital Signs Date Time Temp Pulse Resp B/P Pulse Ox O2 Delivery O2 Flow Rate FiO2 01/21/17 07:30 97.8 75 20 147/79 98 01/20/17 22:00 Room Air Intake and Output 01/20/17 01/20/17 01/21/17 15:00 23:00 07:00 Intake Total 120 ml 1500 ml 300 ml Output Total 650 ml 1200 ml 800 ml Balance -530 ml 300 ml -500 ml Results/Medications Medications Current Medications Diazepam (Valium) 5 mg Q6H PRN PO MUSCLE SPASMS; Start 01/14/17 at 19:00 Docusate Sodium (Colace) 100 mg BID PRN PO CONSTIPATION; Start 01/14/17 at 19: 00 Acetaminophen/ Hydrocodone Bitart ([place] (5/325)) 1 tab Q4H PRN PO PAIN 1-310 ; Start 01/14/17 at 19:00 Acetaminophen/ Hydrocodone Bitart ([place] (5/325)) 2 tab Q4H PRN PO PAIN 4-710 Last administered on 01/21/17 08:53; Admin Dose 2 TAB; Start 01/14/17 at 19:00 Docusate Sodium (Colace) 100 mg BID PO Last administered on 01/21/17 08:52; Admin Dose 100 MG; Start 01/14/17 at 21:00 Magnesium Hydroxide (Milk Of Mag) 30 ml BID PRN PO CONSTIPATION; Start at 19:00 Bisacodyl (Dulcolax Supp) 10 mg DAILY PRN [place] CONSTIPATION; Start 01/14/17 at 19:00 Acetaminophen (Tylenol Tab) 650 mg Q4H PRN PO PAIN AND OR ELEVATED TEMP Last administered on 01/16/17 12:18; Admin Dose 650 MG; Start 01/15/17 at 00:00 Senna (Senokot) 1 tab BID PO Last administered on 01/21/17 08:53; Admin Dose 1 TAB; Start 01/15/17 at 21:00 Lactulose (Enulose) 15 gm DAILY PRN PO CONSTIPATION Last administered on 08:39; Admin Dose 15 GM; Start 01/15/17 at 10:30 Gabapentin (Neurontin) 100 mg TID PO Last administered on 01/21/17 08:59; Admin Dose 100 MG; Start 01/16/17 at 11:30 Hydralazine HCl (Apresoline) 25 mg Q6 PRN PO sbp> 165; Start 01/17/17 at 16:00 Pantoprazole (Protonix Tab) 40 mg DAILY@06 PO Last administered on 01/21/17 06 :10; Admin Dose 40 MG; Start 01/18/17 at 06:00 Carvedilol (Coreg) 6.25 mg BID PO Last administered on 01/21/17 08:53; Admin Dose 6.25 MG; Start 01/20/17 at 21:00 Amlodipine Besylate (Norvasc) 5 mg BID PO Last administered on 01/21/17 09:00 ; Admin Dose 5 MG; Start 01/20/17 at 21:00 Assessment/Plan Additional Assessment/Plan Rehab- Metastatic breast ca with bony mets to the lumbosacral spine stenosis and radiculopathy, and pathologic sacral fracture- decompressive laminectomy. S.W. working on dispo options. Patient will have radiation oncology follow up for XRT. Acute pain syndrome-continue current meds. GI- bowel program History of breast carcinoma with metastasis, also to bilateral iliac, right worse than left. AVERY MARTINEZ MD Jan 21, 2017 12:41
[2017-01-21 14:00] VITALS: BP 125/67; RESP 18
--- NOTE | 2017-01-21 18:41 | PN ---
DATE: 01/21/2017 SUBJECTIVE: The patient seen. The patient is overall comfortable. Plan to discharge today. Discu ssed with rehab unit. She would like to go. She will start with radiation therapy on . patient to be discharged home so she can go. Follow up with Dr. Wilkerson, the surgeon, and with Dr. Leone, the oncologist, and to undergo radiation therapy. PHYSICAL EXAMINATION: VITAL SIGNS: Temperature 97.8, pulse , respirations 20, blood pressure is improved at 147/79. GENERAL: No acute distress. The patient is thin. HEENT: Normocephalic, atraumatic. CARDIOVASCULAR: S1 and S2, regular rate. LUNGS: Clear. ABDOMEN: Soft, nontender. EXTREMITIES: No clubbing, cyanosis or edema. CURRENT MEDICATIONS: Reviewed, include: 1. Coreg 6.25 b.i.d. now. 2. Norvasc 5 mg b.i.d. 3. Protonix 40 mg daily. 4. Hydralazine 25 q.6 p.r.n. 5. Neurontin 100 t.i.d. 6. Senna 1 tab b.i.d. 7. Lactulose p.r.n. 8. Tylenol p.r.n. 9. Colace 100 b.i.d. 10. Valium 5 mg at bedtime p.r.n. 11. Colace p.r.n. 12. [place] p.r.n. 13. Milk of magnesia p.r.n. 14. Dulcolax p.r.n. ASSESSMENT AND PLAN: This is a 61-year-old female with history of breast cancer who presented with increased right lower extremity pain, was found to have metastatic disease to the spine, status pos t decompression surgery. 1. 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 Now underwent physica l therapy, occupational therapy, pain control. The patient is on Neurontin and p.r.n. [place]. 2. Constipation. Stool softeners are being provided. 3. Metastatic cancer to the spine. To undergo radiation therapy and follow up with her oncologist and orthopedic surgeon. 4. Hypertension, improved to . Increased amlodipine to 5 mg b.i.d. Continue Coreg. 5. Gastrointestinal prophylaxis. On gastrointestinal prophylaxis. 6. Stool softeners are being provided. 7. Plan for discharge today on prescribed oral medication. Prescription was written. OVERALL FINAL DIAGNOSES: 1. Status post lumbar decompression laminectomy surgery. 2. Metastatic breast cancer. 3. Hypertension. 4. Constipation. 5. Low back pain. 6. Anxiety disorder. The patient to be discharged in fair condition. Dictated By: VITALY RICO/NOEMY Conf#: [id number] DID#: [id number] CC: AVERY MARTINEZ MD;*EndCC*
--- NOTE | 2017-01-24 12:33 | DS ---
Date/Time of Note Date/Time of Note DATE: 01/24/17 TIME: 12:32 Discharge Summary Admission/Discharge Info Admit Date/Time Jan 14, 2017 at 15:56 Discharge Date/Time Jan 21, 2017 at 17:00 Discharge Diagnosis 1.Metastatic breast carcinoma with bony mets to the lumbosacral spine with resultant stenosis and radiculopathy, and pathologic sacral fracture requiring decompressive laminectomy. 2. Acute pain syndrome, improved 3. History of breast carcinoma with metastasis, also to bilateral iliac, right worse than left. 4. Improvements in self-care and mobility. Patient Condition: Good Hospital Course Patient was admitted for comprehensive interdisciplinary acute rehabilitation. Patient made steady functional gains and improved from a min level to a Modified Independent level for self care and mobility, including ambulating over 150 feet with the use of a front wheeled walker. Patient did have difficulty with sitting tolerance, which improved to 7 or 8 minutes by discharge. Patient is being discharged home with recommendations for home health PT and OT follow up. DME recommendations: FWW; [facility]; Shower Chair Patient will follow up with PMD upon DC. Primary Care Provider MD JUAN Carver LIVA L. MD Jan 24, 2017 12:33
== END 2017-01-21 17:00 | disposition home health service (06) | DRG 560 ==
LOC: VRC 15:56
PROVIDERS: ADMIT Physical Medicine & Rehabilitation; ATTEND Internal Medicine
DX: Z47.89 Encounter for other orthopedic aftercare (principal); C79.51 Secondary malignant neoplasm of bone; Z85.3 Personal history of malignant neoplasm of breast; G89.3 Neoplasm related pain (acute) (chronic); Z74.09 Other reduced mobility; I10 Essential (primary) hypertension
CPT/HCPCS: 80053; 81003; 85025; 87081; 87086; 97110; 97112; 97116; 97150; 97162; 97167; 97530; 97535; J1650